=== PATIENT | male | born 1980 | race Caucasian/White ===

== ENCOUNTER 2021-06-27 16:46 | Emergency (ER) | payer OTHER ==
[~2021-06-27] VITALS: Ht 195.6 cm; Wt 104.5 kg
[2021-06-27 17:06] VITALS: TEMP 97.8
[2021-06-27 18:29] LABS: BASO % 0.7 % (0.0-2.0); EOS # 0.2 K/mm3 (0.0-0.7); EOS % 3.6 % (0.0-4.0); GRAN # 3.1 K/mm3 (1.4-6.5); GRAN % 54.8 % (42.2-75.2); HEMATOCRIT 43.2 % (42.0-52.0); LYMPH # 1.8 K/mm3 (1.2-3.4); LYMPH % 32.5 % (20.0-51.0); MEAN CELL VOLUME 90 fl (80.0-100.0); MEAN CORPUSCULAR HEMOGLOBIN 31 pg (27-31); MEAN CORPUSCULAR HGB CONC 35 g/dl (33.0-37.0); MONO # 0.5 K/mm3 (0.1-0.6); MONO % 8.2 % (1.7-9.3); PLATELET COUNT 210 K/mm3 (130-400)
[2021-06-27 18:43] LABS: ALBUMIN 4.1 gm/dL (3.5-5.0); BILIRUBIN,TOTAL 0.3 mg/dL (0.2-1.2); CALCIUM 9.2 mg/dL (8.4-10.2); CREATININE, serum 0.95 mg/dL (0.72-1.25); POTASSIUM 4.6 mmol/L (3.5-4.5); TOTAL PROTEIN 7.3 gm/dL (6.2-8.1)
[2021-06-27 19:03] LABS: TSH w REFLEX 1.692 uIU/mL (0.350-4.940)
[2021-06-27 19:23] VITALS: BP 117/82; PULSE 58
== END 2021-06-27 19:23 | disposition home or self-care (01) ==
LOC: COL.ER 16:46
PROVIDERS: Emergency Medicine
DX: I49.1 Atrial premature depolarization (principal); Z87.891 Personal history of nicotine dependence